=== PATIENT | male | born 1975 | race Caucasian/White ===

== ENCOUNTER 2018-05-07 19:59 | Emergency (ER) | payer SELFPAY ==
[2018-05-07 20:14] VITALS: BP 145/95
[2018-05-07] MEDS ORDERED: Tetan/Diph/Pertus SYR(Tdap)* 0.5 ML SYR(BOOSTRIX) use SYR IM ONE (20:50)
--- NOTE | 2018-05-07 20:52 | UC ---
Upper Extremity HPI - HPI Summary HPI Summary: The patient is a 42 y/o M presenting to [facility] c/o getting metal pieces stuck in the dorsal aspect of the right hand immediately DISK SANDER. 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 There is no pain associated. He removed most of the pieces, but there is still some present. He denies decreased ROM. He has not had his tetanus shot in at least five years. - History of Current Complaint Chief Complaint: UCUpperExtremity Stated Complaint: RUST PARTICLES IMBEDDED IN HAND Time Seen by Provider: 05/07/18 20:29 Hx Obtained From: Patient Onset/Duration: Sudden Onset, Lasting Hours, Still Present Severity Initially: Mild Severity Currently: Mild Pain Intensity: 0 Pain Scale Used: 0-10 Numeric Location Of Pain: Is Discrete @ - dorsal aspect of right hand Aggravating Factor(s): Nothing Alleviating Factor(s): Nothing Associated Signs And Symptoms: Positive: Other - NEGATIVE: decreased ROM Body - Head: 1 - pieces of metal in dorsal aspect of right hand - Allergies/Home Medications Allergies/Adverse Reactions: Allergies Allergy/AdvReac Type Severity Reaction Status Date / Time No Known Allergies Allergy Verified 05/07/18 20:14 Home Medications: Home Medications NK [No Home Medications Reported] 05/07/18 [History Confirmed 05/07/18] PMH/Surg Hx/FS Hx/Imm Hx Other Endocrine History: NEGATIVE: diabetes Other Cardiovascular History: NEGATIVE: HTN - Surgical History Surgical History: Yes Surgery Procedure, Year, and Place: left leg fracture - Family History Known Family History: Negative: Renal Disease - Social History Alcohol Use: Occasionally Substance Use Type: None Smoking Status (MU): Never Smoked Tobacco Review of Systems Skin: Other - pieces of metal in dorsal aspect of right hand Musculoskeletal: Other: - NEGATIVE: decreased ROM All Other Systems Reviewed And Are Negative: Yes Physical Exam - Summary Physical Exam Summary: VITAL SIGNS: Reviewed. GENERAL: Patient is a well-developed and nourished male who is lying comfortable in the stretcher. Patient is not in any acute respiratory distress. HEAD AND FACE: Normocephalic EYES: PERRLA, EOMI x 2. EARS: Hearing grossly intact. MOUTH: Oropharynx within normal limits. NECK: Supple, trachea is midline, no adenopathy, no JVD, no carotid bruit. CHEST: Symmetric, no tenderness at palpation LUNGS: Clear to auscultation bilaterally. No wheezing or crackles. CVS: Regular rate and rhythm, S1 and S2 present, no murmurs or gallops appreciated. ABDOMEN: Soft, non-tender. Bowel sounds are normal. No abdominal abnormal pulsations. EXTREMITIES: Full ROM in all major joints, no edema, no cyanosis or clubbing. Multiple little penetrating wounds in the dorsal aspect of the right hand from mechanical parts, FROM, good capillary refill, good sensation. NEURO: Alert and oriented x 3. No acute neurological deficits. Speech is normal and follows commands. SKIN: Dry and warm Triage Information Reviewed: Yes Vital Signs: Initial Vital Signs Temp 98.7 F 05/07/18 20:04 Pulse 75 05/07/18 20:04 Resp 16 05/07/18 20:04 BP 145/95 05/07/18 20:04 Pulse Ox 97 05/07/18 20:04 Vital Signs Reviewed: Yes Upper Extremity Course/Dx - Course Course Of Treatment: This patient is a 42-year-old male who presents to the urgent care with an injury in the right hand. Patient reports that he was working with a hydraulic breaks with a lot of pressure and he had some particles and the dorsal aspect of the right hand. He removed most of the particles that he needed a tetanus vaccine since he does remember when his last tetanus vaccine was. I recommend for the patient to the use bacitracin to prevent infection and follow-up with PCP. Patient will be discharged home with follow-up with PCP. Patient is hemodynamically stable. Patient understands and agrees with this plan. - Differential Dx/Diagnosis Provider Diagnoses: Injury to the dorsal aspirin of the right hand with foreign body. abrasion Discharge - Sign-Out/Discharge Documenting (check all that apply): Patient Departure - Patient will be discharged home. All imaging exams completed and their final reports reviewed: No Studies - Discharge Plan Condition: Stable Disposition: HOME Patient Education Materials: Abrasion (ED) Referrals: [facility] [place] [facility] [Outside] - 3 Days Additional Instructions: Follow up with your primary care provider in 2-3 days. Return to Urgent Care or the emergency department for any new or worsening symptoms. - Billing Disposition and Condition Condition: STABLE Disposition: Home - Attestation Statements Document Initiated by Erna: Yes Documenting Scribe: Gina Ching Provider For Whom Erna is Documenting (Include Credential): Ramesh Sharpe MD Scribe Attestation: Gina Carpio, scribed for Ramesh Sharpe MD on 05/09/18 at 0740. Scribe Documentation Reviewed: Yes Provider Attestation: The documentation as recorded by the Gina le accurately reflects the service I personally performed and the decisions made by me, Ramesh Sharpe MD
--- NOTE | 2018-05-08 11:05 | UC ---
Discharge - Sign-Out/Discharge Documenting (check all that apply): Post-Discharge Follow Up All imaging exams completed and their final reports reviewed: No Studies - Discharge Plan Condition: Stable Disposition: HOME Patient Education Materials: Abrasion (ED) Referrals: [facility] [place] [facility] [Outside] - 3 Days Additional Instructions: Follow up with your primary care provider in 2-3 days. Return to Urgent Care or the emergency department for any new or worsening symptoms. - Billing Disposition and Condition Condition: STABLE Disposition: Home
== END 2018-05-07 21:22 | disposition home or self-care (01) ==
LOC: UCEAST 19:59
DX: S60.551A Superficial foreign body of right hand, initial encounter (principal); S60.511A Abrasion of right hand, initial encounter; X58.XXXA Exposure to other specified factors, initial encounter; Y93.89 Activity, other specified; Y92.9 Unspecified place or not applicable
CPT/HCPCS: 90471; 90715; 99201; G0463